=== PATIENT | female | born 1965 | race Caucasian/White ===

== ENCOUNTER 2017-09-22 06:25 | Day surgery (SDC) | payer SELFPAY ==
[2017-09-20 13:20] VITALS: BMI 21.9
[2017-09-22] MEDS ORDERED: LIDOCAINE 1%/EPI 1:100000 (20 ML MULTI DOSE VIAL) ONE ×2 (07:17→08:17)
[2017-09-22] MEDS ORDERED: LIDOCAINE HCL/PF 2% SDV 5ML VIAL ONE ×2 (07:51→10:04)
[2017-09-22] MEDS ORDERED: PROPOFOL 20 ML ONE ×2 (07:52)
[2017-09-22] MEDS ORDERED: MIDAZOLAM HCL 2 MG/2 ML SINGLE DOSE VIAL ONE (07:52)
--- NOTE | 2017-09-22 08:02 | OP ---
Operative Note - Note: Pre-Operative Diagnosis: Bilateral breast ptosis Operation: Bilateral Revision of Implants and mastopexy bilaterally,placement of mesh bilateral Implants: Sientra Post-Operative Diagnosis: Same as Pre-op Surgeon: Missael Seo Anesthesia: General Estimated Blood Loss (mls): 25
[2017-09-22] MEDS ORDERED: ceFAZolin SODIUM 1 GM VIAL ONE ×2 (08:12→08:14)
[2017-09-22] MEDS ORDERED: GENTAMICIN SO4 80 MG/2 ML VIAL ONE (08:13)
[2017-09-22] MEDS ORDERED: BUPIVACAINE HCL/PF 0.5% (5MG/ML) 10 ML VIAL ONE (08:17)
[2017-09-22] MEDS ORDERED: LIDOCAINE 1%/EPI 1:100000 (20 ML MULTI DOSE VIAL) IJ ONE ×2 (08:26)
[2017-09-22] MEDS ORDERED: LIDOCAINE HCL 1%, 10 MG/ML (50 mL VIAL) IJ ONE (08:26)
[2017-09-22] MEDS ORDERED: BUPIVACAINE HCL/PF 0.5% (5MG/ML) 10 ML VIAL IJ ONE ×2 (08:26)
[2017-09-22] MEDS ORDERED: DEXAMETHASONE SOD PHOSPHATE 4 MG/1 ML VIAL ONE (08:32)
[2017-09-22] MEDS ORDERED: ceFAZolin SODIUM 1 GM VIAL IVPB ONE (08:36)
[2017-09-22] MEDS ORDERED: ACETAMINOPHEN 1000 MG/100 ML VIAL (NON FORMULARY) IVPB PRN (10:54)
[2017-09-22] MEDS ORDERED: ONDANSETRON 4 MG/2 ML VIAL IVPUSH PRN (10:54)
[2017-09-22] MEDS ORDERED: oxyCODONE HCL 5 MG TABLET PO PRN (10:54)
[2017-09-22] MEDS ORDERED: LACTATED RINGERS SOLUTION 1,000 ML IV SCH (11:00)
[2017-09-22] MEDS ORDERED: ACETAMINOPHEN 1000 MG/100 ML VIAL (NON FORMULARY) IVPB ONE (11:37)
[2017-09-22 13:56] VITALS: TEMP 98
[2017-09-22] MEDS ORDERED: oxyCODONE HCL 5 MG TABLET ONE (15:00)
[2017-09-22 16:55] VITALS: BP 123/70; PULSE 65
--- NOTE | 2017-09-23 08:42 | OP ---
DATE OF OPERATION: 09/22/2017 SURGEON: Ramón Seo MD PREOPERATIVE DIAGNOSIS: Bilateral breast ptosis with asymmetry and malposition of breast implants. POSTOPERATIVE DIAGNOSIS: Bilateral breast ptosis with asymmetry and malposition of breast implants. OPERATIVE PROCEDURE: 1. Revision right breast augmentation with implant replacement and mastopexy with GalaFLEX mesh. 2. Left breast augmentation mastopexy for symmetry. OPERATIVE INDICATION: Patient is a young woman who underwent breast augmentation and correction of breast asymmetry 14 years ago and now presents with recurrence of her breast ptosis, asymmetry, and required correction as above. The risks and benefits of surgical versus nonsurgical alternatives as well as material complications including no surgery were discussed preoperatively on multiple occasions preoperatively. She agreed to the planned procedure. All questions were asked and answered. The patient was marked in the standing position preoperatively in the holding area and measured for nipple-areolar height, position, and marking of the inframammary folds with her knowledge. OPERATIVE PROCEDURE IN DETAIL: Patient was taken to the operating room, and after induction of general anesthesia in the supine position, both arms were extended and padded, Venodyne boots were placed, and the entire chest wall was prepped with ChloraPrep solution over its entire extent. At this point, attention was turned to the incisions which were made in circumvertical fashion as well as the left breast with a pattern reduction to revise the previous Wade pattern reduction scars. All areas were injected with 1% local lidocaine anesthesia with 1:100,000 epinephrine, and then, attention was turned to the right breast. A circumareolar incision was made around the nipple-areolar complex, reducing the areolar complex with a number 42 nipple-areolar cutter and de-epithelialized according to the pattern. An incision in the lower portion of this pattern was then carried down through the skin, through subcutaneous tissue, through the breast tissue, down to the underlying implant which was removed. This 325-mL [place] implant was removed and discarded. The pocket was adjusted to accept the new implant, and then, GalaFLEX mesh 3-dimensional form was brought into the field sterilely, soaked in a triple-antibiotic solution, and sutured to the pectoralis major muscle superiorly, along the lateral mammary fold, and down around the new implant which was to be placed. At this point, the implant was chosen, a Sientra 385-cc cohesive implant was then placed sterilely into the breast pocket beneath the pectoralis muscle and GalaFLEX which was continued to be sutured with 0 V-Loc suture in a running fashion. This showed good shape and contour in the pocket and position, and then, the tissues were advanced and closed upon themselves in layered fashion. The deepest layer was closed with 3-0 V-Loc suture in a running, 2-layered fashion. The subcutaneous tissue was advanced and closed in circumferential fashion around the nipple- areolar complex with 3-0 Biosyn in interrupted fashion, and then, 5-0 interrupted mattress, vertical sutures were placed into the nipple complex. The procedure was then attended to the left breast. At this point, the markings , which were made as they were inscribed, de-epithelialized, and a portion of the lower portion of the breast was excised down through the skin, into the deep tissues, removing a block of tissue because of the asymmetry in size. This tissue was removed, and hemostasis meticulously obtained throughout the pocket. A subpectoral dissection was then carried out superiorly from the second rib, medially to the sternal fibers, down to the inframammary fold, creating a subpectoral pocket, and then, the same type of GalaFLEX mesh was sutured in V-Loc fashion circumferentially, similarly to the opposite side. Because of the excision of the lower glandular portion of the breast, the same size implant was placed into the left breast. A 385-mL style 107 Sientra smooth, round implant was placed into the pocket and then covered with the GalaFLEX mesh in the lower pole. The tissues were then advanced and closed in tailor-tack fashion, closing the nipple-areolar complex in a similar fashion as the opposite site, advancing and closing and shortening the nipple to IMF distance to match the opposite breast. All wounds were closed around the nipple complex with interrupted vertical mattress sutures on the nipple complex itself , and then, Dermabond and Steri-Strips were placed over the wounds themselves. Patient was placed in the sitting position, showed good symmetry on both breasts, good viability of the nipple-areolar complexes, and then, was awakened, extubated, and transferred to the recovery room in a fluff dressing with a Surgi-Bra. She tolerated the procedure well. RAMÓN SEO M.D. [id number] MTDD
== END 2017-09-22 15:40 | disposition home or self-care (01) ==
LOC: JASU-SURG 06:25
PROVIDERS: ATTEND Plastic Surgery
PROC: 0H0V0JZ Alteration of Bilateral Breast with Synthetic Substitute, Open Approach (ICD-10-PCS; principal; 2017-09-22 08:00)
DX: N64.81 Ptosis of breast (principal)
CPT/HCPCS: 84703; 94760; J0131